=== PATIENT | male | born 1995 | race Two or more races ===

== ENCOUNTER 2025-07-23 22:44 | Emergency (ER) | payer SELFPAY ==
[~2025-07-23] VITALS: Ht 152.4 cm; Wt 57.0 kg
[2025-07-23 23:10] VITALS: BP 137/49; PULSE 123; RESP 16; O2SAT 95
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
== END 2025-07-23 23:30 | disposition home or self-care (01) ==
LOC: ER 22:45
DX: Z00.00 Encounter for general adult medical examination without abnormal findings (principal)
CPT/HCPCS: 99283